=== PATIENT | female | born 1970 | race Caucasian/White ===

== ENCOUNTER → 2017-02-02 | Outpatient (CLI) | payer MEDICAID ==
--- NOTE | 2017-02-02 13:38 | MR ---
EXAMINATION TYPE: MR lumbar spine wo con DATE OF EXAM: 02/02/2017 COMPARISON: MR of the lumbar spine without contrast dated 01/13/2011 HISTORY: Low back pain TECHNIQUE: Multiplanar, multisequence images of the lumbar spine were acquired. Lumbar vertebral bodies maintain a normal height and alignment. Intervertebral disc desiccation is seen at T12-L1, L1-L2, L2-L3, L4-L 5, and L5-S1. Bone marrow signal is unremarkable. T12-L1: Small broad-based disc bulge without neural foraminal stenosis or spinal canal stenosis. L1-L2: Small broad-based disc bulge is seen in combination with mild facet arthropathy without signif icant spinal canal stenosis or neural foraminal narrowing. L2-L3: Small broad-based disc bulge is present in combination with mild facet arthropathy. No spinal canal stenosis or neural foraminal narrowing. L3-L4: Normal disc appearance without desiccation. No herniation, protrusion or disc bulging. No ca nal stenosis is present. Foramina are patent bilaterally. L4-L5: There remains a broad-based disc bulge that abuts the ventral thecal sac. In concert with liga mentum flavum hypertrophy and facet arthropathy there is mild central canal stenosis, mild right neur al foraminal narrowing, and moderate left neural foraminal narrowing. L5-S1: There is redemonstration of a right paracentral disc herniation that abuts the right S1 nerve root. This creates mild bilateral neural foraminal narrowing with no significant central canal stenos is. IMPRESSION: 1. Right paracentral disc herniation at L5-S1 abutting the right S1 nerve root. 2. Continued progression of multilevel degenerative disc disease resulting in mild spinal canal steno sis at L4-L5.
== END | disposition home or self-care (01) ==
LOC: RADMRIMAIN 11:59
PROVIDERS: ATTEND Nurse Practitioner Acute Care
DX: M51.26 Other intervertebral disc displacement, lumbar region (principal); M99.73 Connective tissue and disc stenosis of intervertebral foramina of lumbar region; M51.36 Other intervertebral disc degeneration, lumbar region
CPT/HCPCS: 72148

== ENCOUNTER 2019-07-22 07:30 | Day surgery (SDC) | payer MEDICAID, OTHER ==
[2019-07-18 09:01] VITALS: BMI 37.0
[2019-07-22 08:02] VITALS: RESP 16; TEMP 97
[2019-07-22] MEDS: LACTATED RINGERS 1,000 ML IV SCH ×2 (08:04→08:48)
[2019-07-22] MEDS ORDERED: LIDOCAINE 1% 20 ML VIAL (10MG/ML) FOR IV START INTRADERMA ONE (08:04)
[2019-07-22] MEDS ORDERED: PROPOFOL 10 MG/ML 20 ML VIAL IV ONE (08:35)
--- NOTE | 2019-07-22 09:01 | P.PCN ---
Date of Procedure: 07/22/19 Description of Procedure: BRIEF HISTORY: Patient is a 49-year-old female presenting for outpatient colonoscopy for screening for malignant neoplasm of the colon. No prior history of colonoscopy. No blood per rectum. No abdominal pain. Denies any family history of colon cancer. PROCEDURE PERFORMED: Colonoscopy. PREOPERATIVE DIAGNOSIS: Screening for malignant neoplasm colon, no prior colonoscopy. ESTIMATED BLOOD LOSS: Minimal. IV sedation per Anesthesia. PROCEDURE: After informed consent was obtained, the patient, was brought into the endoscopy unit. IV sedation was administered by Anesthesia under continuous monitoring. Digital rectal examination was normal. Initially the Olympus CF-190 flexible video colonoscope was then inserted in the rectum, gradually advanced into the cecum without any difficulty. Careful examination was performed as the scope was gradually being withdrawn. Ileocecal valve and the appendiceal orifice were visualized and appeared normal. Prep was excellent. Mucosa of the cecum, ascending colon, transverse colon, descending colon, sigmoid colon, and rectum appeared normal. Retroflexion was performed in the rectum and no lesions were seen. The patient tolerated the procedure well. IMPRESSION: Normal-appearing colon from rectum to cecum. RECOMMENDATIONS: Findings of this examination were discussed with the patient. Okay to resume diet. Okay to resume medications. Would recommend repeat colonoscopy in 10 years or sooner if signs or symptoms which warrant further evaluation develop.
[2019-07-22 09:17] VITALS: BP 121/80; PULSE 74
== END 2019-07-22 09:38 | disposition home or self-care (01) ==
LOC: ORWHC2ENDO 07:30
PROVIDERS: ATTEND Internal Medicine
DX: Z12.11 Encounter for screening for malignant neoplasm of colon (principal); E66.9 Obesity, unspecified; M19.90 Unspecified osteoarthritis, unspecified site; Z68.37 Body mass index [BMI] 37.0-37.9, adult; Z98.1 Arthrodesis status; Z79.1 Long term (current) use of non-steroidal anti-inflammatories (NSAID)
CPT/HCPCS: 81025; J2704; G0121

== ENCOUNTER → 2020-04-28 | Outpatient (CLI) | payer OTHER ==
--- NOTE | 2020-04-29 09:54 | ECHOF ---
Referral Reason:R01.1 Cardiac Murmur MEASUREMENTS -------- HEIGHT: 162.6 cm WEIGHT: 98.9 kg BP: IVSd: 1.2 cm (0.6 - 1.1) LVIDd: 4.3 cm (3.9 - 5.3) LVPWd: 1.1 cm (0.6 - 1.1) IVSs: 1.5 cm LVIDs: 2.9 cm LVPWs: 1.7 cm RVIDd: 3.1 cm (< 3.3) LAESV Index (A-L): 21.29 ml/m Ao Diam: 2.5 cm (2.0 - 3.7) LA Diam: 3.5 cm (2.7 - 3.8) AV Cusp: 1.9 cm (1.5 - 2.6) EPSS: 0.8 cm MV E Heath: 0.98 m/s MV DecT: 115 ms MV A Heath: 0.70 m/s MV E/A Ratio: 1.40 RAP: 5.00 mmHg RVSP: 15.37 mmHg MV EF SLOPE: 62.23 mm/s (70 - 150) MV EXCURSION: 16.92 mm (> 18.000) FINDINGS -------- This was a technically good study. The left ventricular size is normal. There is mild concentric left ventricular hypertrophy. Overa ll left ventricular systolic function is normal with, an EF between 55 - 60 %. The diastolic fillin g pattern is normal for the age of the patient 12.70. The right ventricle is normal in size. The left atrial size is normal. Normal LA size by volume 22+/-6 ml/m2. The right atrial size is normal. The aortic valve is trileaflet and appears structurally normal. The mitral valve is normal. The mitral valve leaflets are mildly thickened. Mild mitral regurgita tion is present. The tricuspid valve appears structurally normal. Mild tricuspid regurgitation present. Right vent ricular systolic pressure is normal at < 35 mmHg. There is no pulmonic regurgitation present. The aortic root size is normal. Normal inferior vena cava with normal inspiratory collapse consistent with estimated right atrial pre ssure of 5 mmHg. There is no pericardial effusion. CONCLUSIONS -------- 1. The left ventricular size is normal. 2. There is mild concentric left ventricular hypertrophy. 3. Overall left ventricular systolic function is normal with, an EF between 55 - 60 %. 4. The diastolic filling pattern is normal for the age of the patient 12.70 5. The mitral valve leaflets are mildly thickened. 6. Mild mitral regurgitation is present. 7. Mild tricuspid regurgitation present. 8. There is no pericardial effusion. [employer]DER HELPER: Elizabeth Merrill RDCS
== END | disposition home or self-care (01) ==
LOC: RADECHMAIN 10:58
PROVIDERS: ATTEND Family Medicine
DX: I08.1 Rheumatic disorders of both mitral and tricuspid valves (principal)
CPT/HCPCS: 93306

== ENCOUNTER → 2020-12-20 | Outpatient (CLI) | payer OTHER | END | disposition home or self-care (01) | DX: M25.562 Pain in left knee (principal) ==

== ENCOUNTER → 2020-12-20 | Outpatient (CLI) | payer OTHER ==
--- NOTE | 2020-12-20 15:22 | XR ---
EXAMINATION TYPE: XR knee complete LT DATE OF EXAM: 12/20/2020 COMPARISON: None HISTORY: 50-year-old female M2 5.562 TECHNIQUE: 3 views FINDINGS: Mild marginal spurring medial and patellofemoral compartments. Also along the lateral lip of the tibi al plateau. There may be a small knee joint effusion. Extensor mechanism is intact. No acute fracture , subluxation, or dislocation seen. IMPRESSION: Mild tricompartmental degenerative spurring. A small knee joint effusion may be reactive. No acute os seous abnormality seen. If concern for internal derangement, MRI can be considered.
== END | disposition home or self-care (01) ==
LOC: RADXRMAIN 14:54
PROVIDERS: ATTEND Family Medicine
DX: M17.12 Unilateral primary osteoarthritis, left knee (principal)

== ENCOUNTER → 2021-10-06 | Outpatient (CLI) | payer OTHER ==
--- NOTE | 2021-10-10 11:32 | MM ---
Reason for exam: screening (asymptomatic). Last mammogram was performed 2 years and 2 months ago. History: Took hormonal contraceptives for 1 year. Physical Findings: A clinical breast exam by your physician is recommended on an annual basis and results should be correlated with mammographic findings. MG Screening Mammo w CAD Bilateral CC and MLO view(s) were taken. Prior study comparison: July 24, 2019, bilateral MG screening mammo w CAD. November 10, 2011, bilateral digital screening mammo w/CAD. There are scattered fibroglandular densities. No significant changes when compared with prior studies. ASSESSMENT: Benign, BI-RAD 2 RECOMMENDATION: Routine screening mammogram of both breasts in 1 year.
== END | disposition home or self-care (01) ==
LOC: RADMAMWWP 16:07
PROVIDERS: ATTEND Family Medicine
DX: Z12.31 Encounter for screening mammogram for malignant neoplasm of breast (principal)
CPT/HCPCS: 77067

== ENCOUNTER → 2022-12-04 | Outpatient (CLI) | payer OTHER ==
--- NOTE | 2022-12-05 08:43 | MM ---
Reason for Exam: Screening (asymptomatic). Last mammogram was performed 1 year(s) and 2 month(s) ago. Patient History: Menarche at age 12. First Full-Term at age 17. Patient used Hormonal Contraceptives for 1 year. Risk Values: Vandana 5 year model risk: 0.8%. NCI Lifetime model risk: 6.3%. Prior Study Comparison: 11/10/2011 Bilateral Screening Mammogram, [facility]. 07/24/2019 Bilateral Screening Mammogram, [facility]. 10/06/2021 Bilateral Screening Mammogram, [facility]. Tissue Density: There are scattered fibroglandular densities. Findings: Analyzed By CAD. There is no suspicious group of microcalcifications or new suspicious mass in either breast. Overall Assessment: Negative, BI-RAD 1 Management: Screening Mammogram of both breasts in 1 year. . Patient should continue monthly self-breast exams. A clinical breast exam by your physician is recommended on an annual basis. This exam should not preclude additional follow-up of suspicious palpable abnormalities. Note on Vandana scores and lifetime risk: 1. A Vandana score greater than 3% is considered moderate risk. If this is the case, consider specialist referral to assess eligibility for a risk reducing agent. 2. If overall lifetime risk for the development of breast cancer is 20% or higher, the patient may qualify for future screening with alternating mammogram and breast MRI. Electronically signed and approved by: Nila Kasper M.D. Radiologist
== END | disposition home or self-care (01) ==
LOC: RADMAMWWP 14:21
PROVIDERS: ATTEND Family Medicine
DX: Z12.31 Encounter for screening mammogram for malignant neoplasm of breast (principal)
CPT/HCPCS: 77067

== ENCOUNTER → 2023-12-12 | Outpatient (CLI) | payer OTHER ==
--- NOTE | 2023-12-13 08:22 | MM ---
Reason for Exam: Screening (asymptomatic). Last screening mammogram was performed 12 month(s) ago. Patient History: Menarche at age 12. First Full-Term at age 17. Postmenopausal. Patient used Hormonal Contraceptives for 1 year. Risk Values: Vandana 5 year model risk: 0.8%. NCI Lifetime model risk: 6.2%. Prior Study Comparison: 07/24/2019 Bilateral Screening Mammogram, [facility]. 10/06/2021 Bilateral Screening Mammogram, [facility]. 12/04/2022 Bilateral MG screening mammo w CAD, [facility]. Tissue Density: There are scattered areas of fibroglandular density. Findings: Analyzed By CAD. There is no suspicious group of microcalcifications or new suspicious mass in either breast. Overall Assessment: Negative, BI-RAD 1 Management: Screening Mammogram of both breasts in 1 year. . Patient should continue monthly self-breast exams. A clinical breast exam by your physician is recommended on an annual basis. This exam should not preclude additional follow-up of suspicious palpable abnormalities. Note on Vandana scores and lifetime risk: 1. A Vandana score greater than 3% is considered moderate risk. If this is the case, consider specialist referral to assess eligibility for a risk reducing agent. 2. If overall lifetime risk for the development of breast cancer is 20% or higher, the patient may qualify for future screening with alternating mammogram and breast MRI. Electronically signed and approved by: Tani Garner M.D. Radiologis
== END | disposition home or self-care (01) ==
LOC: RADMAMWWP 15:27
PROVIDERS: ATTEND Family Medicine
DX: Z12.31 Encounter for screening mammogram for malignant neoplasm of breast (principal); Z78.0 Asymptomatic menopausal state
CPT/HCPCS: 77067

== ENCOUNTER → 2024-12-12 | Outpatient (CLI) | payer OTHER ==
--- NOTE | 2024-12-12 15:03 | MM ---
Reason for Exam: Screening (asymptomatic). Last screening mammogram was performed 12 month(s) ago. Patient History: Menarche at age 12. First Full-Term at age 17. Postmenopausal. Patient used Hormonal Contraceptives for 1 year. Risk Values: Vandana 5 year model risk: 0.8%. NCI Lifetime model risk: 6.1%. Prior Study Comparison: 10/06/2021 Bilateral Screening Mammogram, [facility]. 12/04/2022 Bilateral MG screening mammo w CAD, [facility]. 12/12/2023 Bilateral MG screening mammo w CAD, [facility]. Tissue Density: There are scattered areas of fibroglandular density. Findings: Analyzed By CAD. Right breast: There is no suspicious group of microcalcifications or new suspicious mass. Left breast: There is no suspicious group of microcalcifications or new suspicious mass. Overall Assessment: Negative, BI-RAD 1 Management: Screening Mammogram of both breasts in [address] [facility] will attempt to contact patient to return for supplemental views and ultrasound if indicated. Patient should continue monthly self-breast exams. A clinical breast exam by your physician is recommended on an annual basis. This exam should not preclude additional follow-up of suspicious palpable abnormalities. Note on Vandana scores and lifetime risk: 1. A Vandana score greater than 3% is considered moderate risk. If this is the case, consider specialist referral to assess eligibility for a risk reducing agent. 2. If overall lifetime risk for the development of breast cancer is 20% or higher, the patient may qualify for future screening with alternating mammogram and breast MRI. [facility], , 12/12/2024 3:00 PM. Electronically signed and approved by: Honorio Neal DO
== END | disposition home or self-care (01) ==
LOC: RADMAMWWP 14:32
PROVIDERS: ATTEND Family Medicine
DX: Z12.31 Encounter for screening mammogram for malignant neoplasm of breast (principal); R92.323 Mammographic fibroglandular density, bilateral breasts; Z78.0 Asymptomatic menopausal state; Z92.0 Personal history of contraception
CPT/HCPCS: 77063; 77067